=== PATIENT | female | born 1955 ===

== ENCOUNTER 2018-10-27 06:09 | Day surgery (SDC) | payer BC ==
[2018-10-13 09:50] VITALS: BMI 26.9
[~2018-10-27 06:09] MED LIST: Lactated Ringer's 500 ML IV ONE; Phenylephrine 2.5% Opht Soln OD SCH; Tropicamide 0.5% Opht Sol OD SCH
[2018-10-27] MEDS ORDERED: Lactated Ringer's 1,000 ML IV ONE (06:47)
[2018-10-27] MEDS ORDERED: Carbachol 0.01% IO ONE (07:21)
[2018-10-27] MEDS ORDERED: Povidone Iodine Ophthalmic 5% Soln ONE (07:21)
[2018-10-27] MEDS ORDERED: Chondroitin/Hyaluronate Opth Syringe KIT (0.55 ml-0.5 ml) IO ONE (07:22)
[2018-10-27] MEDS ORDERED: Tobramycin/Dexamethasone OPHT OINT ONE (07:22)
[2018-10-27] MEDS ORDERED: Tetracaine 0.5% Ophth (OR ONLY) ONE (07:22)
[2018-10-27] MEDS ORDERED: Hyaluronidase Human, Recombi 150 U/ML VIAL ONE (07:23)
[2018-10-27] MEDS ORDERED: Lidocaine 2% MPF (5 ml) Inj ONE (07:23)
[2018-10-27] MEDS ORDERED: Propofol 10 mg/ml Inj (20 ML) ONE (07:41)
[2018-10-27] MEDS ORDERED: Lactated Ringer's 500 ML IV ONE (08:12)
[2018-10-27 08:50] VITALS: O2SAT 99
[2018-10-27 09:17] VITALS: BP 112/56; PULSE 77; RESP 15; TEMP 97.7
--- NOTE | 2018-10-28 15:28 | OP ---
PROCEDURE DATE: 10/27/2018 PREOPERATIVE DIAGNOSIS: Matured nuclear cataract, right eye. POSTOPERATIVE DIAGNOSIS: Matured nuclear cataract, right eye. PROCEDURE: Cataract extraction with lens implant, right eye. SURGEON: Rene Dudley MD ANESTHESIA: Retrobulbar block. COMPLICATIONS: None. ESTIMATED BLOOD LOSS: Zero. DESCRIPTION OF PROCEDURE: The patient was brought to the operating room and properly identified. Anesthesia staff administered intravenous sedation and retrobulbar block was given to the surgical eye. The patient was then prepped and draped in the usual sterile fashion. Attention was turned to the surgical eye. A lid speculum was placed into interpalpebral fissure. Sitting temporally, two paracentesis incisions were made. The anterior chamber was filled with viscoelastic and a triplanar clear corneal incision was made. Using a cystitome, anterior capsular leaflet was created. Utrata forceps were used to create a continuous curvilinear capsulorrhexis. Balanced salt solution on a cannula was used to hydrodissect and hydrodelineate the lens. The lens was then phacoemulsified with no complications. Automated irrigation and aspiration was used to remove the cortex. Viscoelastic was used to deepen the anterior chamber. The lens was placed in the capsular bag. Automated irrigation and aspiration was used to remove the viscoelastic. The anterior chamber was filled with Miochol. The wounds were hydrated with balanced salt solution. There was noted to be no leak at the end of the case and the lens was well positioned. The lid speculum was removed. The eye was given antibiotics and steroids and covered with a patch and shield. The patient was returned to the recovery room in stable condition. Rene Dudley MD
== END 2018-10-27 10:21 | disposition home or self-care (01) ==
LOC: C.SDS 06:09
PROVIDERS: ATTEND Ophthalmology
DX: H25.11 Age-related nuclear cataract, right eye (principal)
CPT/HCPCS: 66984; J2704; J3470; J7120

== ENCOUNTER 2018-11-09 12:12 | Day surgery (SDC) | payer OTHER ==
[2018-10-13 09:49] VITALS: BMI 26.9
[~2018-11-09 12:12] MED LIST changes: -Phenylephrine 2.5% Opht Soln OD SCH; +Phenylephrine 2.5% Opht Soln OS SCH; -Tropicamide 0.5% Opht Sol OD SCH; +Tropicamide 0.5% Opht Sol OS SCH
[2018-11-09] MEDS ORDERED: Phenylephrine 2.5% Opht Soln OS SCH (12:45)
[2018-11-09] MEDS ORDERED: Lactated Ringer's 1,000 ML IV ONE (13:00)
[2018-11-09] MEDS ORDERED: Povidone Iodine Ophthalmic 5% Soln ONE (13:13)
[2018-11-09] MEDS ORDERED: Carbachol 0.01% IO ONE (13:13)
[2018-11-09] MEDS ORDERED: Chondroitin/Hyaluronate Opth Syringe KIT (0.55 ml-0.5 ml) IO ONE (13:14)
[2018-11-09] MEDS ORDERED: Tetracaine 0.5% Ophth (OR ONLY) ONE (13:14)
[2018-11-09] MEDS ORDERED: Hyaluronidase Human, Recombi 150 U/ML VIAL ONE (13:14)
[2018-11-09] MEDS ORDERED: Propofol 10 mg/ml Inj (20 ML) ONE (15:52)
[2018-11-09] MEDS: Tobramycin/Dexamethasone OPHT OINT ONE ×2 (16:07→16:20)
[2018-11-09 16:47] VITALS: TEMP 97.6; O2SAT 97
[2018-11-09 17:17] VITALS: BP 120/56; PULSE 85; RESP 20
--- NOTE | 2018-11-10 01:26 | OP ---
PROCEDURE DATE: 11/09/2018 PREOPERATIVE DIAGNOSIS: Mature nuclear cataract, left eye. POSTOPERATIVE DIAGNOSIS: Mature nuclear cataract, left eye. OPERATIVE PROCEDURE: Cataract extraction with lens implant, left eye. SURGEON: Rene Dudley MD TYPE OF ANESTHESIA: Retrobulbar block. COMPLICATIONS: None. ESTIMATED BLOOD LOSS: Zero. DESCRIPTION OF PROCEDURE: The patient was brought to the operating room and properly identified. Anesthesia staff administered intravenous sedation and retrobulbar block was given to the surgical eye. The patient was then prepped and draped in the usual sterile fashion. Attention was turned to the surgical eye. A lid speculum was placed into interpalpebral fissure. Sitting temporally, two paracentesis incisions were made. The anterior chamber was filled with viscoelastic and a triplanar clear corneal incision was made. Using a cystitome, anterior capsular leaflet was created. Utrata forceps were used to create a continuous curvilinear capsulorrhexis. Balanced salt solution on a cannula was used to hydrodissect and hydrodelineate the lens. The lens was then phacoemulsified with no complications. Automated irrigation and aspiration was used to remove the cortex. Viscoelastic was used to deepen the anterior chamber. The lens was placed in the capsular bag. Automated irrigation and aspiration was used to remove the viscoelastic. The anterior chamber was filled with Miochol. The wounds were hydrated with balanced salt solution. There was noted to be no leak at the end of the case and the lens was well positioned. The lid speculum was removed. The eye was given antibiotics and steroids and covered with a patch and shield. The patient was returned to the recovery room in stable condition. Rene Dudley MD
== END 2018-11-09 17:16 | disposition home or self-care (01) ==
LOC: C.SDS 12:12
PROVIDERS: ATTEND Ophthalmology
DX: H25.12 Age-related nuclear cataract, left eye (principal)
CPT/HCPCS: 66984; J2001; J2704; J3010; J3470; J7120

== ENCOUNTER 2018-11-19 09:31 | Outpatient (CLI) | payer OTHER | END 2018-11-19 09:32 | disposition home or self-care (01) | LOC: C.LAB 09:31 | DX: M32.9 Systemic lupus erythematosus, unspecified (principal); J45.909 Unspecified asthma, uncomplicated; L29.9 Pruritus, unspecified; I11.9 Hypertensive heart disease without heart failure; E78.2 Mixed hyperlipidemia; E78.5 Hyperlipidemia, unspecified; L08.9 Local infection of the skin and subcutaneous tissue, unspecified ==

== ENCOUNTER 2019-01-25 07:54 | Outpatient (CLI) | payer OTHER | END 2019-01-25 07:55 | disposition home or self-care (01) | LOC: C.MRIC 07:54 ==

== ENCOUNTER 2019-02-11 09:58 | Outpatient (CLI) | payer OTHER | END 2019-02-11 09:59 | disposition home or self-care (01) | LOC: C.LAB 09:58 | DX: R31.9 Hematuria, unspecified (principal); E78.5 Hyperlipidemia, unspecified ==